=== PATIENT | male | born 1970 | race Two or more races ===

== ENCOUNTER 2024-09-08 11:20 | Day surgery (SDC) | payer MEDICAID, SELFPAY ==
--- NOTE | 2024-09-05 07:19 | EKG_ITS ---
[facility] Test Date: 2024-09-05 Pat Name: HARVINDER MCDONNELL Department: Room: - Gender: Male Cause Analyst: KINGSLEY : 1970 Requested By: James Ibrahim Order Number: [id number] Reading MD: James Ibrahim Measurements Intervals [place] Rate: 53 P: 42 NE: 173 QRS: -17 QRSD: 113 T: 29 QT: 405 QTc: 381 Interpretive Statements SINUS BRADYCARDIA MODERATE INTRAVENTRICULAR CONDUCTION DELAY [110+ ms QRS DURATION] No previous ECG available for comparison /[id number]/S0/[id number].pdf
[2024-09-05 09:56] VITALS: BMI 29.7
[2024-09-05 10:19] LABS: Collection Type, Urine Clean Catch
[2024-09-05 11:19] LABS: Basophils # (Auto) 0.1 Thou/mm3 (0.0-0.2); Basophils % (Auto) 1 % (0-2.5); Eosinophils # (Auto) 0.4 Thou/mm3 (0.0-0.5); Eosinophils % (Auto) 5 % (0-10); Hematocrit 43.2 % (41.0-53.0); Hemoglobin 15.5 g/dL (13.5-16.0); Immature Granulocytes % (Auto) 0 % (0-0); Immature Granulocytes Auto 0.01 Thou/mm3 (0.00-0.00); Lymphocytes # (Auto) 2.9 Thou/mm3 (1.0-4.8); Lymphocytes % (Auto) 35 % (10-50); Mean Corpuscular HGB Conc 35.9 g/dl (31.0-37.0); Mean Corpuscular Hemoglobin 31.8 pg (25.0-35.0); Mean Corpuscular Volume 89 fL (80-100); Monocytes # (Auto) 0.9 Thou/mm3 (0.0-0.8); Monocytes % (Auto) 11 % (0-12); Neutrophils # (Auto) 3.8 Thou/mm3 (1.8-7.7); Neutrophils % (Auto) 47 % (37-80); Nucleated Red Blood Cell % 0 /100 WBC (0); Platelet Count 238 Thou/mm3 (140-440); RDW Standard Deviation 40.3 fL (35.1-43.9); Red Blood Count 4.88 Miln/mm3 (4.50-5.90); White Blood Count 8.1 Thou/mm3 (3.8-10.6)
[2024-09-05 11:20] LABS: Bilirubin,Urine Negative (Negative); Blood,Urine Negative (Negative); Clarity,Urine Clear (Clear/Hazy); Color,Urine Lt-Yellow (Lt Yel-Yel); Glucose, Urine Negative (Negative); Ketones,Urine Negative (Negative); Leukocyte Esterase,Urine Negative (Negative); Nitrite,Urine Negative (Negative); PH,Urine 6.5 (5.0-7.0); Protein,Urine Negative (Neg - Trace); RBC,Urine 4 /hpf (0-3); Specific Gravity,Urine 1.026 (1.001-1.035); Squamous Epithelial Cell,Urine 1 /hpf (0-5); Urobilinogen,Urine Negative mg/dL (0.0-1.0); WBC,Urine 1 /hpf (0-5)
[2024-09-05 11:26] LABS: INR 1.1 (0.9-1.3); Partial Thromboplastin Time 30.5 Seconds (22.0-36.0); Prothrombin Time 11.9 Seconds (9.0-12.2)
[2024-09-05 11:57] LABS: Alanine Aminotransferase 31 U/L (10-49); Albumin, Serum 4.3 gm/dL (3.5-5.0); Albumin/Globulin Ratio 1.3 (1.2-2.2); Alkaline Phosphatase 71 U/L (46-116); Anion Gap 8 (7-16); Aspartate Amino Transferase 26 U/L (0-34); BUN/Creatinine Ratio 21 Ratio (12-20); Bilirubin,Total 0.5 mg/dL (0.3-1.2); Blood Urea Nitrogen 21 mg/dL (9-23); Calcium 9.9 mg/dL (8.3-10.6); Calcium (Corrected) 9.9 mg/dL (8.5-10.1); Carbon Dioxide 23.6 mMol/L (20.0-31.0); Chloride 110 mMol/L (98-107); Estimated Creatinine Clearance 91.6 mL/min (>60); Globulin 3.2 gm/dL (2.3-3.5); Glucose 101 mg/dL (74-106); Osmolality,Calculated 286 (275-295); Sodium 142 mMol/L (136-145); Total Protein 7.5 gm/dL (5.7-8.2); eGFR > 60 See Note
[2024-09-08] VITALS (18 sets, daily range): BP systolic 108–136; BP diastolic 62–94; PULSE 54–75; RESP 12–20; TEMP 36.2–36.7; O2SAT 95–98; BMI 28.2
--- NOTE | 2024-09-08 13:48 | SUR.PHASEI ---
0675 Patient arrived to recovery, sleeping in gurney able to arouse then drifts back to sleep, breathing unlabored, vital signs stable, denies pain, dressing intact buttock; gauze packing, abd, mesh underwear; no bleeding noted, denies nausea, report received from Augie CHOUDHARY and Dr. Hutson
--- NOTE | 2024-09-08 13:55 | PD.SUROPNT ---
Date of Procedure 09/08/24 Pre Op Diagnosis Extensive internal and external hemorrhoids with fissure in ano Post Op Diagnosis Same. Procedure Internal and external hemorrhoidectomy with fissurectomy and lateral sphincterotomy on 09/08/2024 Findings This patient has had extensive internal/external hemorrhoids with posterior fissure in ano and hypertrophic sphincter. There were no other findings. Procedure Description The patient was interviewed in the preop area. Patient understanding of surgery was discussed and is ascertained that patient knows what procedure we are going to do. The risk benefits and alternatives of hemorrhoidectomy surgery were discussed in detail with the patient and informed consent is obtained. The risk includes risk of bleeding infection urinary retention possible long-term recurrence of the hemorrhoids and anesthesia related complications. The patient has done bowel prep as prescribed. Patient was taken to the operating room and laid supine on the operating room table. General anesthesia was administered satisfactorily. Patient is positioned in the lithotomy position on yellowfins. Perianal region is prepped and draped in usual manner. A timeout procedure was carried out. A dilute lidocaine with epinephrine is injected and pararectal and internal pudendal blocks were achieved bilaterally. Examination is carried out under anesthesia and shows that the patient has extensive hemorrhoids. The hemorrhoid at 3 o'clock position, 7 o'clock position, and 11 o'clock position were removed. All hemorrhoids were removed by similar technique. For each hemorrhoid pedicles were ligated with 3-0 Vicryl sutures. After that a V-shaped incision was made around the external hemorrhoid and was dissected from the sphincter. The internal sphincter was identified and was protected. The hemorrhoid was removed as a specimen. The fissure was dissected and scar tissue was removed. After all this hemostasis is achieved. Significant amount of mucosa and the anal skin were left between the excisions in order to prevent the alejo deformity. The hemorrhoidal incisions were kept open for secondary healing. Dilute lidocaine solution is infiltrated again. Lidocaine with Silverdene cream is applied. A cigarette drain fashioned from a 4 x 4 gauze is placed in the anal canal. Sterile dressing is applied. Patient tolerated the procedure very well. Anesthesia GETA Drains None. Implants None. Pathology / specimen Other (Hemorrhoids at 3:00 7:00 and 11 o'clock position) Estimated Blood Loss 5 Condition Stable Disposition PACU Surgeon James Ibrahim MD Surgical Staff Operation Date: 09/08/24 13:45 <No data on this case meets the specified criteria> Anesthesiologist Dr. Hutson [employer] Augie Curiel surgical scrub technician
--- NOTE | 2024-09-08 14:20 | SUR.PHASEII ---
1420 Dr. Ibrahim at bedside, order received that patient must void prior to discharge.
--- NOTE | 2024-09-08 14:59 | SUR.PHASEII ---
patient at bedside with patient
--- NOTE | 2024-09-08 15:00 | SUR.PHASEII ---
patient ate snacks, jello, apple sauce, vanilla and chocolate pudding, two peanut butter cups, three packs of gorge crackers and two apple juices, tolerated well, denies nausea
--- NOTE | 2024-09-08 15:44 | SUR.PHASEII ---
1527 Discharge instructions given to patient, patient shared he needed to go to the restroom. 1533 Patient disconnected from the vital signs monitor and ambulated to the restroom 1544 Patient unable to void, reconnected to vital signs monitor, will continue to encourage oral fluids and finish IV fluids LR from OR provided by anesthesia provider.
--- NOTE | 2024-09-08 15:46 | SUR.PHASEII ---
3502 Telephone order read-back from Dr. Ibrahim, [place] 10mg oral for pain, will enter into EMR and administer per MD order
[2024-09-08] MEDS: HYDROcodone/APAP 5/325 TABLET 2 TAB PO (15:54)
--- NOTE | 2024-09-08 16:34 | SUR.PHASEII ---
1620 Patient disconnected from vital signs monitor, and walking in hallway, attempted to void in the restroom and unable to void 1634 Report given to Ty CHOUDHARY, patient is sitting up in [facility], awaiting to urinate, drinking oral fluids, vital signs stable, per patient his pain is improving, dressing intact; no bleeding noted, denies nausea
--- NOTE | 2024-09-08 16:34 | SUR.PHASEII ---
received report from Zulma Ghotra RN at this time. pt awake and alert, breathing unlabored on room air. v/s stable. pt dressing to rectal area cdi. waiting for pt to urinate before discharge.
--- NOTE | 2024-09-08 18:00 | SUR.PHASEII ---
Called to inform Dr. Ibrahim pt had not urinated after 4 hours, bladder scan showed 646mls. new orders received to insert segundo catheter and d/c pt home to follow up at his office to 2 days for catheter removal.
--- NOTE | 2024-09-08 18:33 | SUR.PHASEII ---
pt awake and alert, breathing unlabored on room air. v/s stable. pt dressing to rectal area cdi. segundo catheter in place connected to leg bag. d/c instructions given with in room using drop wire hanger Elder vázquez, all questions answered. pt d/c via wheelchair with all belongings.
== END 2024-09-08 18:33 | disposition home or self-care (01) ==
PROVIDERS: PCP Internal Medicine; Referring Provider Specialist; Visit Provider Specialist
PROC: (CPT 46945; principal; 2024-09-08 13:30)
DX: K60.2 Anal fissure, unspecified (principal); K64.4 Residual hemorrhoidal skin tags; K64.8 Other hemorrhoids; Z87.19 Personal history of other diseases of the digestive system; Z01.810 Encounter for preprocedural cardiovascular examination
CPT/HCPCS: 46945; 36415; 80053; 81001; 85025; 85610; 85730; 93005; A4217; A4649; J0131; J0461; J0690; J0694; J1100; J2250; J2405; J2704; J3010; A9270